=== PATIENT | female | born 1965 | race Native Hawaiian/Other Pacific Islander ===

== ENCOUNTER 2022-08-06 13:42 | Emergency (ER) | payer BC ==
[~2022-08-06] VITALS: Ht 170.2 cm; Wt 63.5 kg
[2022-08-06 14:17] LABS: PLATELET COUNT 218 K/uL (152-353)
[2022-08-06 14:28] LABS: POTASSIUM 4.1 mmol/L (3.6-5.2)
[2022-08-06 16:00] VITALS: BP 127/84
== END 2022-08-06 17:04 | disposition home or self-care (01) ==
LOC: ED 13:42
PROVIDERS: Emergency Medicine Emergency Medical Services
DX: R09.1 Pleurisy (principal)
CPT/HCPCS: 36415; 36600; 80053; 82805; 83880; 84484; 85027; 85379; 85610; 93005; 96360; 96374; 99284; J1885; J2060; Q9963

== ENCOUNTER 2023-05-17 08:26 | Outpatient (CLI) | payer BC | END 2023-05-17 19:22 | disposition home or self-care (01) | LOC: MAMMO 08:26 | PROVIDERS: ATTEND Physician Assistant | DX: Z12.31 Encounter for screening mammogram for malignant neoplasm of breast (principal) ==